=== PATIENT | male | born 1965 | race Caucasian/White ===

== ENCOUNTER 2017-01-31 11:05 | Emergency (ER) | payer BC ==
[~2017-01-31] VITALS: Ht 170.2 cm; Wt 123.5 kg
[~2017-01-31 11:05] MED LIST: AMOX TR-K CLV1 EAC4 PO; BENICAR40 MG PO; FLAGYL500 MG PO; LEVAQUIN500 MG PO; LEXAPRO; LEXAPRO20 MG PO; PAIN MED; PROAIR RESPICL90 MCG IH; TRULICITY0.75 MG/0. SC
[2017-01-31 11:18] VITALS: BP 135/98
[2017-01-31] MEDS ORDERED: MICATIN15 GM TP (13:34)
[2017-02-03 13:22] LABS: CHLAMYDIA TRACHOMATIS NEGATIVE; NEISSERIA GONORRHOEAE NEGATIVE
== END 2017-01-31 14:11 | disposition home or self-care (01) ==
LOC: EME 11:05
PROVIDERS: Physician Assistant Medical
DX: N48.1 Balanitis (principal); I10 Essential (primary) hypertension
CPT/HCPCS: 87491; 87591; 99281; 99284